=== PATIENT | female | born 1980 | race Caucasian/White ===

== ENCOUNTER 2022-01-16 04:30 | Inpatient (IN) | payer OTHER ==
[2022-01-16] MEDS ORDERED: OXYTOCIN 20 UNITS in 0.9% NS 20 UNIT/1,000 ML INFUS.BAG IV ONE (06:03)
[2022-01-16] MEDS ORDERED: LIDOCAINE HCL 1% PRESERVATIVE FREE - 30ML VIAL ONE (06:12)
[2022-01-16] MEDS ORDERED: BENZOCAINE 20% 57 GM BOTTLE TP PRN (06:36)
[2022-01-16] MEDS ORDERED: ACETAMINOPHEN 325 MG TABLET (FP) PO PRN (06:36)
[2022-01-16] MEDS ORDERED: BENZOCAINE 28 GM HEMORRHOIDAL OINTMENT TP PRN (06:36)
[2022-01-16] MEDS ORDERED: BISACODYL 10 MG SUPP.RECT RC PRN (06:36)
[2022-01-16] MEDS ORDERED: METHYLERGONOVINE MALEATE 0.2 MG/1 ML AMP IM PRN (06:36)
[2022-01-16] MEDS ORDERED: IBUPROFEN 600 MG TABLET (FP) PO PRN (06:36)
[2022-01-16] MEDS ORDERED: WITCH HAZEL 50% (TUCKS) 40 PAD/JAR PAD TP PRN (06:36)
[2022-01-16] MEDS ORDERED: OXYTOCIN 20 UNITS in 0.9% NS 20 UNIT/1,000 ML INFUS.BAG IV SCH ×2 (06:45→08:30)
[2022-01-16 06:46] LABS: CALCIUM 8.9 mg/dL (8.5-10.1)
[2022-01-16 06:47] LABS: BLOOD UREA NITROGEN 7.8 mg/dL (7-18)
[2022-01-16 06:48] LABS: INR 0.87 (0.83-1.09)
[2022-01-16 06:51] LABS: ACTIVATED PTT 25.4 SECONDS (25.2-36.5); CREATININE 0.5 mg/dL (0.55-1.3)
[2022-01-16] MEDS: oxyCODONE HCL 5 MG TABLET PO PRN (07:12)
[2022-01-16] MEDS ORDERED: oxyCODONE HCL 5 MG TABLET ONE (07:15)
[2022-01-16 08:02] VITALS: BMI 36.9
[2022-01-16] MEDS ORDERED: ELECTROLYTE-148 SOLN 1,000 ML IV SCH (08:30)
[2022-01-16 09:04] LABS: BASO % 0.1 % (0-2.0); EOS % 0.4 % (0-4.5); HEMATOCRIT 34.6 % (32.4-45.2); HEMOGLOBIN 11.8 GM/dL (10.7-15.3); LYMPH % 16.5 % (8-40); MCH 31.7 pg (25.7-33.7); MEAN CELL VOLUME 93.2 fl (80-96); MEAN PLT VOLUME 8.5 fl (7.5-11.1); MONO % 8.4 % (3.8-10.2); NEUT % 74.6 % (42.8-82.8); PLATELET COUNT 264 10^3/uL (134-434); RBC 3.72 M/mm3 (3.60-5.2); RDW 15.8 % (11.6-15.6); WHITE BLOOD COUNT 9.3 K/mm3 (4.0-10.0)
[2022-01-16] MEDS: FERROUS SO4 325 MG TABLET (FP) PO SCH ×3 (09:06→17:15)
[2022-01-16] MEDS: PRENATAL VITAMINS W/ FOLIC ACID TABLET (FP) PO SCH (09:07)
[2022-01-16] MEDS: IBUPROFEN 600 MG TABLET (FP) PO PRN ×3 (09:07→21:19)
[2022-01-16] MEDS: ACETAMINOPHEN 325 MG TABLET (FP) PO PRN (13:25)
[2022-01-16] MEDS ORDERED: ACETAMINOPHEN 325 MG TABLET (FP) PO ONE (20:45)
[2022-01-17] MEDS: IBUPROFEN 600 MG TABLET (FP) PO PRN ×5 (01:25→19:08)
[2022-01-17 09:11] LABS: BASO % 0.5 % (0-2.0); EOS % 0.8 % (0-4.5); HEMATOCRIT 29.3 % (32.4-45.2); HEMOGLOBIN 10.2 GM/dL (10.7-15.3); LYMPH % 19.2 % (8-40); MCH 32.1 pg (25.7-33.7); MCHC 34.8 g/dl (32.0-36.0); MEAN CELL VOLUME 92.2 fl (80-96); MONO % 6.1 % (3.8-10.2); NEUT % 73.4 % (42.8-82.8); PLATELET COUNT 193 10^3/uL (134-434); RBC 3.18 M/mm3 (3.60-5.2); RDW 15.3 % (11.6-15.6); WHITE BLOOD COUNT 7.3 K/mm3 (4.0-10.0)
[2022-01-17] MEDS: PRENATAL VITAMINS W/ FOLIC ACID TABLET (FP) PO SCH (09:18)
[2022-01-17] MEDS: FERROUS SO4 325 MG TABLET (FP) PO SCH ×3 (09:18→17:49)
[2022-01-17] MEDS: oxyCODONE HCL 5 MG TABLET PO PRN (21:06)
[2022-01-17] MEDS ORDERED: SENNOSIDES/DOCUSATE COMBO (SENNA PLUS) TABLET (UD) PO PRN (22:00)
[2022-01-18] MEDS: IBUPROFEN 600 MG TABLET (FP) PO PRN ×3 (02:02→12:24)
[2022-01-18] MEDS: ACETAMINOPHEN 325 MG TABLET (FP) PO PRN (05:16)
[2022-01-18] MEDS: PRENATAL VITAMINS W/ FOLIC ACID TABLET (FP) PO SCH (09:24)
[2022-01-18] MEDS: FERROUS SO4 325 MG TABLET (FP) PO SCH ×2 (09:24→12:07)
[2022-01-18 10:25] VITALS: BP 134/82; PULSE 72; TEMP 98
== END 2022-01-18 13:15 | disposition home or self-care (01) | DRG 560 ==
LOC: JDEL 04:30 → JLDR 04:40 → J3W 08:45
PROVIDERS: ADMIT Obstetrics & Gynecology; ATTEND Obstetrics & Gynecology
PROC: 0HQ9XZZ Repair Perineum Skin, External Approach (ICD-10-PCS; principal; 2022-01-16)
PROC: 10E0XZZ Delivery of Products of Conception, External Approach (ICD-10-PCS; 2022-01-16)
DX: O70.0 First degree perineal laceration during delivery (principal); Z3A.39 39 weeks gestation of pregnancy; Z37.0 Single live birth
CPT/HCPCS: 36415; 59409; 80048; 85025; 85610; 85730; 86780; 86850; 86900; 86901; C9803-CS; U0003; U0005